=== PATIENT | male | born 1975 | race African-American/Black ===

== ENCOUNTER 2016-05-28 10:57 | Emergency (ER) | payer SELFPAY ==
--- NOTE | 2016-05-28 11:08 | ER Document Report ---
ED Medical Screen (RME) - General Stated Complaint: PAIN AND SWELLING IN KNEES Notes: Bilateral knee pain excessive warmth to the touch for approximately 3 months. Physical Exam - Vital signs Vitals: Temp Pulse Resp BP Pulse Ox 97.7 F 56 L 14 133/76 H 99 05/28/16 11:06 05/28/16 11:06 05/28/16 11:06 05/28/16 11:06 05/28/16 11:06 Course - Vital Signs Vital signs: Temp Pulse Resp BP Pulse Ox 97.7 F 56 L 14 133/76 H 99 05/28/16 11:06 05/28/16 11:06 05/28/16 11:06 05/28/16 11:06 05/28/16 11:06
[2016-05-28 11:39] LABS: APPEARANCE,URINE CLEAR; BILIRUBIN,URINE NEGATIVE (NEGATIVE); GLUCOSE, URINE NEGATIVE (NEGATIVE); KETONES,URINE NEGATIVE (NEGATIVE); LEUKOCYTE ESTERASE,URINE NEGATIVE (NEGATIVE); NITRITE,URINE NEGATIVE (NEGATIVE); PROTEIN,URINE NEGATIVE (NEGATIVE); URINE SPECIFIC GRAVITY 1.027; UROBILINOGEN,URINE NEGATIVE mg/dL (<2.0)
[2016-05-28 11:44] LABS: ABSOLUTE LYMPHOCYTES (AUTO) 1.5 10^3/uL (0.5-4.7); ABSOLUTE MONOCYTES (AUTO) 0.4 10^3/uL (0.1-1.4); ABSOLUTE NEUT (AUTO) 1.5 10^3/uL (1.7-8.2); BASOPHILS % (AUTO) 0.3 % (0-2); EOSINOPHILS % (AUTO) 0.7 % (0-6); HEMATOCRIT 42.9 % (37.9-51.0); HGB HCT DIFFERENCE -0.9; LYMPHOCYTES % (AUTO) 43.3 % (13-45); MEAN CORPUSCULAR HEMOGLOBIN 29.3 pg (27.0-33.4); MEAN CORPUSCULAR HGB CONC 32.5 g/dL (32.0-36.0); MEAN CORPUSCULAR VOLUME 90 fl (80-97); MONOCYTES % (AUTO) 11.8 % (3-13); RED BLOOD COUNT 4.75 10^6/uL (4.35-5.55); RED CELL DISTRIBUTION WIDTH 13.4 % (11.5-14.0); SEGMENTED NEUTROPHILS % (AUTO) 43.9 % (42-78); WHITE BLOOD COUNT 3.4 10^3/uL (4.0-10.5)
[2016-05-28 11:59] LABS: ALANINE AMINOTRANSFERASE 16 U/L (21-72); ALBUMIN 4.1 g/dL (3.5-5.0); ALKALINE PHOSPHATASE 52 U/L (38-126); ANION GAP 11 (5-19); ASPARTATE AMINO TRANSFERASE 24 U/L (17-59); BILIRUBIN,TOTAL 0.8 mg/dL (0.2-1.3); BLOOD UREA NITROGEN 16 mg/dL (7-20); CALCIUM 8.9 mg/dL (8.4-10.2); CARBON DIOXIDE 29 mmol/L (22-30); CHLORIDE 102 mmol/L (98-107); CREATININE RESULT 1.29 mg/dL (0.52-1.25); GLUCOSE 114 mg/dL (75-110); POTASSIUM 4.2 mmol/L (3.6-5.0); SODIUM 142.4 mmol/L (137-145); TOTAL PROTEIN 7.3 g/dL (6.3-8.2)
--- NOTE | 2016-05-28 12:23 | ER Document Report ---
ED Extremity Problem, Lower - General Time seen by provider: 12:20 Mode of Arrival: Ambulatory Information source: Patient TRAVEL OUTSIDE OF THE [place] IN LAST 30 DAYS: No - HPI Patient complains to provider of: Pain, Swelling Location: Knee - bilaterally Occurred: Other - see HPI Onset/Duration: Persistent, Waxing and waning Pain Level: 5 <TIANNA DELAROSA - Last Filed: 05/28/16 12:39> <FRANK FALL - Last Filed: 05/28/16 13:48> - General Chief Complaint: Knee Pain Stated Complaint: PAIN AND SWELLING IN KNEES Notes: Patient is a 41-year-old male presented to the emergency department with complaints of pain and swelling to his knees bilaterally. Patient told triage that he is having these pains for the past year that his pain has increased over the past 3 months. Patient states that it hurts worse when he is climbing stairs or walking long distances. Patient denies any injury or fall related to his knee pain. Patient states he does not currently work. Patient has a heavy accent and does not understand [place] fluently therefore history of present illness, past medical history, and review of systems is somewhat limited. Patient has no known allergies. (TIANNA DELAROSA) - Related Data Allergies/Adverse Reactions: No Known Allergies Allergy (Unverified 05/28/16 11:09) Past Medical History - General Information source: Patient - Social History Smoking Status: Never Smoker Chew tobacco use (# tins/day): No Frequency of alcohol use: None Drug Abuse: None Occupation: none Family History: None Patient has suicidal ideation: No Patient has homicidal ideation: No <TIANNA DELAROSA - Last Filed: 05/28/16 12:39> Review of Systems - Review of Systems Constitutional: No symptoms reported EENT: No symptoms reported Cardiovascular: No symptoms reported Respiratory: No symptoms reported Gastrointestinal: No symptoms reported Genitourinary: No symptoms reported Male Genitourinary: No symptoms reported Musculoskeletal: See HPI, Joint pain, Joint swelling Skin: No symptoms reported Hematologic/Lymphatic: No symptoms reported Neurological/Psychological: No symptoms reported -: Yes All other systems reviewed and negative <TIANNA DELAROSA - Last Filed: 05/28/16 12:39> Physical Exam - Vital signs Interpretation: Normal - General General appearance: Appears well, Alert In distress: Mild - HEENT Head: Normocephalic, Atraumatic Eyes: Normal Pupils: PERRL Mucous membranes: Normal - Respiratory Respiratory status: No respiratory distress Chest status: Nontender Breath sounds: Normal Chest palpation: Normal - Cardiovascular Rhythm: Regular Heart sounds: Normal auscultation Murmur: No - Abdominal Inspection: Normal Distension: No distension Bowel sounds: Normal Tenderness: Nontender Organomegaly: No organomegaly - Back Back: Normal, Nontender - Extremities General upper extremity: Normal inspection, Normal ROM, Normal strength Knee: Tender - pain and tenderness to both knees bilaterally, worse on the left , Other - edema to the knees bilaterally, worse on the left - Neurological Neuro grossly intact: Yes Cognition: Normal Orientation: AAOx4 [place] Coma Scale Eye Opening: Spontaneous [place] Coma Scale Verbal: Oriented [place] Coma Scale Motor: Obeys Commands [place] Coma Scale Total: 15 Speech: Normal Sensory: Normal - Psychological Associated symptoms: Normal affect, Normal mood - Skin Skin Temperature: Warm Skin Moisture: Dry <TIANNA DELAROSA - Last Filed: 05/28/16 12:39> Course - Laboratory Result Diagrams: 05/28/16 11:15 05/28/16 11:15 <TIANNA DELAROSA - Last Filed: 05/28/16 12:39> - Laboratory Result Diagrams: 05/28/16 11:15 05/28/16 11:15 - Diagnostic Test Radiology reviewed: Image reviewed, Reports reviewed - Bilateral two-view knee x -rays are unremarkable. <FRANK FALL - Last Filed: 05/28/16 13:48> - Re-evaluation Re-evalutation: 05/28/16 13:38 The WBC level is quite low. The CRP is undetectable. The x-rays are unremarkable. There is no swelling of the knees appreciated at this time. The history is consistent with chondromalacia patella and overuse syndrome. His creatinine is elevated at 1.29, so NSAIDs would probably not be a good idea at this time. He will be discharged on steroids, [place] for pain as needed, and to follow-up with primary care provider or orthopedics. States he is not employed so appointment restrictions are not necessary. He states he doesn't live in a home with stairs he has to climb. (FRANK FALL) - Vital Signs Vital signs: Temp Pulse Resp BP Pulse Ox 97.7 F 56 L 14 133/76 H 99 05/28/16 11:06 05/28/16 11:06 05/28/16 11:06 05/28/16 11:06 05/28/16 11:06 (TIANNA DELAROSA) (FRANK FALL) - Laboratory Laboratory results interpreted by me: 05/28/16 05/28/16 11:15 11:15 WBC 3.4 L Absolute Neutrophils 1.5 L Creatinine 1.29 H Glucose 114 H ALT 16 L (TIANNA DELAROSA) (FRANK FALL) Discharge <TIANNA DELAROSA - Last Filed: 05/28/16 12:39> <FRANK FALL - Last Filed: 05/28/16 13:48> - Discharge Clinical Impression: Knee pain, bilateral Qualifiers: Chronicity: chronic Qualified Code(s): M25.561 - Pain in right knee Condition: Stable Disposition: HOME, SELF-CARE Additional Instructions: Chondromalacia: Your knee pain is probably due to cartilage irritation under the knee cap. This is called chondromalacia. It occurs when the knee cap isn't lined up perfectly on the joint. The cartilage on the back of the knee cap rubs on the bone. Climbing stairs and rising from a chair often cause pain. Chondromalacia is most common in young and active people. Treat the pain with ice packs and pain medicine. Avoid activities that make the pain worse. Isometric exercises to strengthen the quadriceps (thigh) muscle may help prevent further episodes. (Deep-knee bends and "quad machine" weight-lifting tend to make it worse.) In some cases, shoe inserts to correct imbalances in the legs or feet may be prescribed. Support for the knee cap with a light brace may also be helpful. Return if the knee becomes more swollen and painful, or if the symptoms aren't improving with time. TAKE THE MEDICATION PRESCRIBED THIS WEEK TO CALM DOWN THE KNEE PAIN AND SWELLING---START THE PREDNISONE ON SUNDAY(tomorrow). LIMIT WALKING AND STAIR CLIMBING. IT WOULD BE BEST TO AVOID TAKING "NSAIDS" SUCH MOTRIN, ALEVE OR ASPIRIN DUE TO IMPAIRED KIDNEY FUNCTION--YOUR CREATININE WAS 1.29. FOLLOW UP WITH A LOCAL MEDICAL DOCTOR TO MANAGE YOUR KNEE PAIN AND TO EVALUATE YOUR KIDNEY FUNCTION. Prescriptions: Prednisone [Deltasone 10 mg Tablet] 10 mg PO ASDIR PRN #21 tablet PRN Reason: Tramadol HCl [Ultram 50 mg Tablet] 50 mg PO Q6 #20 tablet Scribe Attestation: 05/28/16 13:48 I personally performed the services described in the documentation, reviewed and edited the documentation which was dictated to the scribe in my presence, and it accurately records my words and actions. (FRANK FALL) Scribe Documentation <TIANNA DELAROSA - Last Filed: 05/28/16 12:39> <FRANK FALL - Last Filed: 05/28/16 13:48> - Scribe Written by Scribe:: FRANK FALL MD, SCRIBE 05/28/16 [id number] Acting as scribe for: Dr. Fall (TIANNA DELAROSA) (FRANK FALL)
[2016-05-28] MEDS ORDERED: NAPROXEN 250 MG TABLET PO ONE (12:24)
[2016-05-28] MEDS ORDERED: PREDNISONE 20 MG TABLET PO ONE (13:34)
[2016-05-28 14:13] VITALS: BP 135/73
== END 2016-05-28 14:08 | disposition home or self-care (01) ==
LOC: ER 10:57
DX: M25.562 Pain in left knee (principal); M25.561 Pain in right knee; G89.29 Other chronic pain; M79.89 Other specified soft tissue disorders
CPT/HCPCS: 99283; 36415; 85025; 86140; 85045; 80053; 81001; 73560; J7512